=== PATIENT | male | born 1980 | race Caucasian/White ===

== ENCOUNTER 2016-06-06 16:05 | Emergency (ER) | payer OTHER ==
[~2016-06-06] VITALS: Ht 167.6 cm; Wt 86.0 kg
[2016-06-06 16:11] VITALS: BP 141/97; PULSE 76; RESP 16; TEMP 98.7; O2SAT 98
[2016-06-06] MEDS ORDERED: RABIES VACCINE CHICK EMB INJ 2.5 UNITS/ML SYR IM ONE (17:30)
--- NOTE | 2016-06-06 17:35 | PD ---
HPI Chief Complaint: Bite or Sting Time Seen by Provider: 17:32 Travel History International Travel<30 days: No Contact w/Intl Traveler<30days: No Traveled to known affect area: No History of Present Illness HPI 35-year-old male presents to the emergency department requesting rabies vaccination. He has been receiving rabies vaccinations since exposure to a bat 14 days ago. Patient has no medical complaints at this time. Denies fever, chills, nausea, vomiting. Denies chest pain, shortness breath, abdominal pain. Denies headache, lightheadedness, dizziness, change in mentation. Denies significant past medical history. No known allergies. No other modifying factors or associated signs and symptoms. PFSH Past Medical History Medical History: Denies Significant Hx Diminished Hearing: No Immunizations Current: Yes Tetanus Vaccination: < 5 Years Influenza Vaccination: Yes Past Surgical History Abdominal Surgery: Yes (hernia) Social History Alcohol Use: Yes (SOCIAL- MIX DRINKS) Tobacco Use: No Substance Use: No Allergies-Medications (Allergen,Severity, Reaction): Coded Allergies: No Known Allergies (Unverified , 06/06/16) Reported Meds & Prescriptions Reported Meds & Active Scripts Active No Active Prescriptions or Reported Medications Review of Systems Except as stated in HPI: all other systems reviewed are Neg Physical Exam Narrative GENERAL: Well-nourished, well-developed male patient, in no acute distress; afebrile SKIN: Warm and dry. HEAD: Atraumatic. Normocephalic. EYES: Pupils equal and round. No scleral icterus. No injection or drainage. ENT: Mucosa pink and moist. Airway patent. NECK: Trachea midline. CARDIOVASCULAR: Regular rate. RESPIRATORY: No accessory muscle use. GASTROINTESTINAL: Flat. MUSCULOSKELETAL: No obvious deformities. No clubbing. No cyanosis. No edema. NEUROLOGICAL: Awake and alert. Oriented 3. No obvious cranial nerve deficits. Motor grossly within normal limits. Normal speech. PSYCHIATRIC: Appropriate mood and affect; insight and judgment normal. Data Data Last Documented VS Vital Signs Date Time Temp Pulse Resp B/P Pulse Ox O2 Delivery O2 Flow Rate FiO2 06/06/16 16:26 16 06/06/16 16:11 98.7 76 141/97 98 Orders Rabies Vaccine Chick Emb Inj (Rabavert I (06/06/16 17:30) [facility] Medical Decision Making Medical Screen Exam Complete: Yes Emergency Medical Condition: Yes Medical Record Reviewed: Yes Differential Diagnosis Medical clearance, rabies vaccination, wound recheck Narrative Course 35-year-old male presents for day 14 of rabies vaccination after exposure to a bat. He has been receiving his medications here. He has no medical complaints at this time. Rabies vaccine ordered and administered in the ER. Patient is medically cleared and stable for discharge. Discussed reasons to return to the emergency department. Instructed patient to follow up with primary care provider. Patient agrees with treatment plan. The patients vital signs are stable and the patient is stable for outpatient follow-up and treatment. Patient discharged home, stable and in no acute distress. Diagnosis Primary Impression: Need for rabies vaccination Referrals: Primary Care Physician Patient Instructions: General Instructions, Rabies Vaccine (ED) Additional Instructions: Follow-up with primary care provider Return to the emergency department immediately with worsening of symptoms Med/Other Pt SpecificInfo: No Meds Exist/No RX given Scripts No Active Prescriptions or Reported Meds Disposition: 01 DISCHARGE HOME Condition: Stable Salma Langford Jun 06, 2016 17:35
== END 2016-06-06 17:54 | disposition home or self-care (01) ==
LOC: PHEFT 16:05
DX: Z23 Encounter for immunization (principal); W55.81XD Bitten by other mammals, subsequent encounter
CPT/HCPCS: 90471; 90675